=== PATIENT | female | born 1980 | race African-American/Black ===

== ENCOUNTER 2022-08-01 00:22 | Observation (INO) | payer OTHER ==
[2022-08-01] MEDS ORDERED: Morphine 4 MG/ML VIAL SLOW IVP PRN (01:38)
[2022-08-01] MEDS: Sodium Chloride 0.9% 1,000 ML IV SCH (01:47)
[2022-08-01 02:05] VITALS: BMI 33.5
[2022-08-01 05:24] LABS: #Neutrophils 15.4 10x3/uL (1.5-8.4); %Basophils 0.2 % (0.0-2.0); %Eosinophils 0.1 % (0.0-6.0); %Lymphocytes 13.5 % (18.0-47.0); %Monocytes 5.4 % (0.0-10.0); %Neutrophils 80.4 % (40.0-75.0); Hemoglobin 12.6 g/dL (12.0-15.5); Mean Corpuscular HGB CONC 33.6 g/dL (32.0-36.0); Mean Corpuscular Hemoglobin 33.4 pg (27.0-33.0); Mean Corpuscular Volume 99.5 fl (81.6-98.3); Mean Platelet Volume 8.6 fl (7.4-10.4); Platelet Count 381 10x3/uL (150-450); RBC Distribution Width 12.1 % (11.5-14.5); Red Blood Cell (RBC) Count 3.77 10x6/uL (3.90-5.03); White Blood Cell (WBC) Count 19.1 10x3/uL (3.5-10.5)
[2022-08-01 05:31] LABS: Anion Gap 14 mmol/L (10-20); BUN (Urea Nitrogen) 7 mg/dL (7.0-18.7); Calc. Creatinine Clearance 164 mL/min (70-130); Calcium 9.2 mg/dL (7.8-10.44); Carbon Dioxide 21 mmol/L (22-29); Chloride 107 mmol/L (98-107); Estimated GFR 102; Glucose 119 mg/dL (70-105); Potassium 3.6 mmol/L (3.5-5.1); Sodium 138 mmol/L (136-145)
[2022-08-01] MEDS ORDERED: Bupivacaine HCl 0.5%/Epinephrine 1:200,000/PF 30 ml Vial ONE (07:44)
[2022-08-01] MEDS ORDERED: Fentanyl 100 MCG/2 ML VIAL ONE (07:54)
[2022-08-01] MEDS ORDERED: PROPOFOL 20 ML ONE (07:54)
[2022-08-01] MEDS ORDERED: Lidocaine 2% PF 5 ML VIAL ONE (07:56)
[2022-08-01] MEDS ORDERED: Rocuronium Bromide 10 MG/ML (10ML VIAL) ONE (07:58)
[2022-08-01] MEDS: Folic Acid 1 MG TAB PO SCH (08:00)
[2022-08-01] MEDS: Topiramate 25 MG TAB PO SCH ×2 (08:00→21:30)
[2022-08-01] MEDS ORDERED: CEFAZOLIN 1 GM VIAL ONE (09:39)
[2022-08-01] MEDS ORDERED: Dexamethasone 20 MG/5 ML VIAL ONE (10:35)
[2022-08-01] MEDS ORDERED: Dexamethasone 4 mg/ml Vial ONE (10:35)
[2022-08-01] MEDS ORDERED: Ketorolac Tromethamine 30 MG/ML VIAL ONE (10:35)
[2022-08-01] MEDS ORDERED: HYDROcodone/Acetaminophen 5/325 mg Tablet PO PRN (13:25)
[2022-08-01] MEDS ORDERED: HYDROcodone/Acetaminophen 7.5/325 mg Tablet PO PRN (14:09)
[2022-08-01] MEDS ORDERED: Morphine 2 MG/ML VIAL SLOW IVP PRN (14:10)
[2022-08-01] MEDS: HYDROcodone/Acetaminophen 7.5/325 mg Tablet PO PRN (17:01)
[2022-08-01] MEDS ORDERED: Atorvastatin Calcium 40 MG TAB PO SCH (21:00)
[2022-08-02] MEDS: HYDROcodone/Acetaminophen 7.5/325 mg Tablet PO PRN (05:33)
[2022-08-02 07:27] VITALS: BP 100/55; TEMP 97.8
[2022-08-02] MEDS ORDERED: Furosemide 40 MG TAB PO SCH (07:30)
[2022-08-02] MEDS: Sodium Chloride 0.9% 1,000 ML IV SCH (08:27)
[2022-08-02] MEDS: Folic Acid 1 MG TAB PO SCH (09:37)
[2022-08-02] MEDS: Topiramate 25 MG TAB PO SCH (09:37)
== END 2022-08-02 09:50 | disposition home or self-care (01) ==
LOC: CSHPP 00:22
PROVIDERS: ADMIT Obstetrics & Gynecology; ATTEND Hospitalist
PROC: 0UT64ZZ Resection of Left Fallopian Tube, Percutaneous Endoscopic Approach (ICD-10-PCS; principal; 2022-08-01)
PROC: 0UT14ZZ Resection of Left Ovary, Percutaneous Endoscopic Approach (ICD-10-PCS; 2022-08-01)
DX: N83.512 Torsion of left ovary and ovarian pedicle (principal); N83.292 Other ovarian cyst, left side; R19.00 Intra-abdominal and pelvic swelling, mass and lump, unspecified site; D25.2 Subserosal leiomyoma of uterus; I11.0 Hypertensive heart disease with heart failure; I50.9 Heart failure, unspecified; E78.5 Hyperlipidemia, unspecified; D75.89 Other specified diseases of blood and blood-forming organs; E66.01 Morbid (severe) obesity due to excess calories; Z68.33 Body mass index [BMI] 33.0-33.9, adult; G43.909 Migraine, unspecified, not intractable, without status migrainosus; Z79.02 Long term (current) use of antithrombotics/antiplatelets; Z86.73 Personal history of transient ischemic attack (TIA), and cerebral infarction without residual deficits; Z79.82 Long term (current) use of aspirin; Z79.899 Other long term (current) drug therapy; F17.210 Nicotine dependence, cigarettes, uncomplicated
CPT/HCPCS: 36415; 80048; 82607; 85025; 86850; 86900; 86901; 88305; 93005; 93010; J0690; J1100; J1885; J2001; J2270; J2704; J3010; J7050

== ENCOUNTER 2022-08-31 12:56 | Outpatient (CLI) | payer OTHER | END 2022-08-31 12:57 | disposition home or self-care (01) | LOC: CSHMAMMO 12:56 | PROVIDERS: ATTEND Obstetrics & Gynecology | DX: Z12.31 Encounter for screening mammogram for malignant neoplasm of breast (principal); N63.20 Unspecified lump in the left breast, unspecified quadrant; N64.89 Other specified disorders of breast | CPT/HCPCS: 77066; G0279 ==